=== PATIENT | male | born 1965 | race Caucasian/White ===

== ENCOUNTER → 2017-09-10 10:02 | Outpatient (CLI) | payer OTHER ==
--- NOTE | ~2017-09-10 | EC ---
PATIENT:MICHELLE MENON DATE OF SERVICE: 09/10/17 SEX: M MEDICAL RECORD: [id number] DATE OF : 69 LOCATION:[facility] AGE OF PATIENT: 52 ADMISSION DATE: 09/10/17 REFERRING PHYSICIAN: INTERPRETING PHYSICIAN: INOCENCIA MIGUEL MD ECHOCARDIOGRAM REPORT ECHO CHARGES 4 ECHO COMPLETE CLINICAL DIAGNOSIS: PACEMAKER/ARRHYTHMIA ECHOCARDIOGRAPHIC MEASUREMENTS (adult normal given) AC root (d.<3.7cm) 3.5 cm LV Septum d (<1.2 cm> 1.2 cm Valve Excursion 2.6 cm LV Septum (systole) 2.0 cm Left Atria (s.<4.0cm> 4.1 cm LVPW d(<1.2cm) 1.2 cm RV (d.<2.3cm) 3.5 cm LVPW (sytole) 2.2 cm LV diastole(<5.6CM) 5.9 cm MV E-F(>70mm/sec) cm LV systole 3.2 cm LVOT Diameter 2.4 cm MV exc.(>10mm) cm Est.ejection fraction (50-75%) % Pericardial Effusion N DOPPLER: LVIT cm/sec A 47.0 cm/sec E 60.0 cm/sec LA cm/sec RVSP 33.0 mmHg LVOT 87.0 cm/sec AOP1/2T m/s Asc. Ao 126 cm/sec RVOT 60.0 cm/sec RA cm/sec PA 91.0 cm/sec AV Gradient Peak 6.3 mmHg AV Mean 3.0 mmHg AV Area 3.0 cm MV Gradient Peak 1.6 mmHg MV Mean 0.33 mmHg MV Area cm COMMENTS: Nephrology Nurse: Germania SUNOE Cutch Cleaner: 1 Dr. Miguel TAPE# PACS DATE OF SERVICE: 09/10/2017 Echocardiogram FINDINGS: 1. Left ventricular chamber size is within normal limits. Left ventricular systolic function is normal. Overall ejection fraction estimated at 55%. 2. Left atrium is enlarged at 4.1 cm. Right atrium and right ventricular chamber sizes are as well mildly dilated. 3. Valvular structures have normal structure and motion. ECHOCARDIOGRAM REPORT [id number] MICHELLE MENON 4. Doppler interrogation reveals [id number] aortic insufficiency, mild mitral regurgitation, mild tricuspid regurgitation, no other valvular insufficiency or stenosis and pulmonary systolic pressure is normal estimated at 33 mmHg. 5. No evidence of pericardial effusion or left ventricular thrombus. TRANSINT:[id number] Voice Confirmation ID: [id number] DOCUMENT ID: [id number] INOCENCIA MIGUEL MD at 1800 CC: [id number] DICTATION DATE: 09/10/17 1448 SCALE MANAGER: 09/10/17 1509 REG [facility] [address] [id number]
== END | disposition home or self-care (01) ==
LOC: D.ECHO 10:02
DX: I49.9 Cardiac arrhythmia, unspecified (principal); Z95.0 Presence of cardiac pacemaker